=== PATIENT | female | born 1985 | race Caucasian/White ===

== ENCOUNTER 2017-06-23 17:02 | Inpatient (IN) | payer BC, OTHER ==
[2017-06-23] MEDS ORDERED: Lidocaine 1% (PF) 30 ML VIAL SC PRN ×2 (17:30→19:34)
[2017-06-23] MEDS ORDERED: LR / Pitocin 40 units/1000 ml 1,000 ML IV PRN (17:30)
[2017-06-23] MEDS ORDERED: Promethazine HCl 25 MG/ML VIAL IM PRN (17:30)
[2017-06-23] MEDS ORDERED: Ondansetron HCl/PF 4 MG/2 ML Vial IVP PRN (17:30)
[2017-06-23 18:26] LABS: Hematocrit 35.1 % (36.0-47.0); Mean Platelet Volume 9.5 fL (7.4-10.4); Red Blood Cell (RBC) Count 3.78 mill/uL (4.20-5.40); White Blood Cell (WBC) Count 14.2 thou/uL (4.8-10.8)
[2017-06-23 18:33] VITALS: BMI 27.9
[2017-06-23 18:51] LABS: ALT (SGPT) 34 U/L (8-55); AST (SGOT) 25 U/L (5-34); Alkaline Phosphatase 153 U/L (40-150); Anion Gap 11 mmol/L (10-20); BUN (Urea Nitrogen) 10 mg/dL (7.0-18.7); Bilirubin, Total 0.3 mg/dL (0.2-1.2); Calc. Creatinine Clearance 156 mL/min (70-130); Calcium 9.2 mg/dL (7.8-10.44); Carbon Dioxide 22 mmol/L (22-29); Chloride 108 mmol/L (98-107); Estimated GFR-MDRD Greater than 90; Globulin 2.9 g/dL (2.4-3.5); Protein, Total 6.4 g/dL (6.0-8.3)
[2017-06-23] MEDS ORDERED: Ibuprofen 800 MG TAB PO PRN (19:34)
[2017-06-23] MEDS ORDERED: HYDROcodone/Acetaminophen 5/325 mg Tablet PO PRN ×2 (19:34)
[2017-06-23] MEDS ORDERED: Lactated Ringer's 1,000 ML IV SCH (19:45)
[2017-06-23] MEDS: Lactated Ringer's 1,000 ML IV SCH (20:19)
[2017-06-23] MEDS: Misoprostol 100 MCG TAB VAG SCH (20:19)
[2017-06-24] MEDS: Misoprostol 100 MCG TAB VAG SCH ×6 (02:51→16:54)
[2017-06-24] MEDS: Lactated Ringer's 1,000 ML IV SCH ×3 (04:06→22:50)
[2017-06-24] MEDS ORDERED: LR 500 ML/Oxytocin 10 units 500 ML ONE (08:09)
[2017-06-24] MEDS ORDERED: Penicillin G Potassium 5 MILL.UNITS VIAL ONE (08:22)
--- NOTE | 2017-06-24 08:23 | PDOC.LDHP ---
Labor and Delivery H&P Chief complaint: scheduled induction HPI: 31 y/o WF at 37 6/7 weeks EDC 07/08/17 was noted to have elevated blood pressures at her OBV-120-160/90-100. UP was negative. Asymptomatic. Serial blood pressures in L&D 140-150/80-90's c/w mild gestational HTN. Normal labs..Active fetus. Denies headache, scotomata, or right upper quadrant pain. Current gestational age (weeks): 38 Due date: 07/08/17 Dating criteria: last menstrual period Grav: 1 Para: 0 Current complications: hypertension Abnormal US findings: No Allergies/Adverse Reactions: Allergies Allergy/AdvReac Type Severity Reaction Status Date / Time No Allergy Information Allergy Verified 06/23/17 20:04 Available Social history: none - Physical Exam General: NAD Heart: RRR Lungs: CTAB Abdomen: gravid Extremeties: trace edema FHT: category 1 - Vaginal Exam cm dilated: 1 Effacement: 75% Station: -1 - OB Labs Blood type: O RH: positive Antibody Screen: negative HIV: negative RPR: negative HEPSAg: negative 1 hour GCT: negative GBS: unknown - Assessment L&D Assessment: medically indicated induction - Plan Plan: admit to L&D, cervical ripening, labor augmentation if indicated, GBS antibiotic prophylaxis, informed consent obtained, anesthesia consult for pain management
[2017-06-24] MEDS ORDERED: Lidocaine 1% (PF) 30 ML VIAL SC PRN (08:28)
[2017-06-24] MEDS ORDERED: LR / Pitocin 40 units/1000 ml 1,000 ML IV PRN (08:28)
[2017-06-24] MEDS ORDERED: LR 500 ML/Oxytocin 10 units 500 ML IV SCH (08:30)
[2017-06-24] MEDS ORDERED: Penicillin G Potassium 5 MILL.UNITS in Sodium Chloride 0.9% 100 ML IVPB SCH (08:30)
[2017-06-24] MEDS ORDERED: Labetalol HCl 100 MG/20 ML VIAL SLOW IVP PRN (08:31)
[2017-06-24] MEDS ORDERED: FLU VACC QS2017-18 36 mo. & older 0.5 ML SYRINGE IM ONE (09:00)
[2017-06-24] MEDS ORDERED: Fentanyl 4 mcg/Marc 0.1% Cadd 100 ML ONE (09:43)
[2017-06-24] MEDS ORDERED: diphenhydrAMINE 50 MG/ML VIAL IVP PRN ×2 (10:45→17:37)
[2017-06-24] MEDS ORDERED: Promethazine HCl 25 MG/ML VIAL IM PRN ×2 (10:45→17:37)
[2017-06-24] MEDS ORDERED: ePHEDrine/0.9% NaCl/PF SYRINGE 50 mg/10 ml SLOW IVP PRN (10:45)
[2017-06-24] MEDS ORDERED: Acetaminophen 325 MG TAB PO PRN (10:45)
[2017-06-24] MEDS ORDERED: Eucerin (Mineral Oil/Petrolatum,White) 30 gm Jar TOP PRN ×2 (10:45→17:37)
[2017-06-24] MEDS ORDERED: Fentanyl 4mcg/Marcaine 0.1% Cassette 100 ML EPIDURAL SCH (10:45)
[2017-06-24] MEDS ORDERED: Naloxone HCl 0.4 mg/ml Vial IVP PRN ×4 (10:45→17:37)
[2017-06-24] MEDS ORDERED: Lactated Ringer's 500 ML IV PRN (10:45)
[2017-06-24] MEDS ORDERED: Communication Order-Pharmacy FS SCH ×2 (10:45→17:45)
[2017-06-24] MEDS ORDERED: Ondansetron HCl/PF 4 MG/2 ML Vial IVP PRN ×3 (10:45→17:37)
[2017-06-24] MEDS ORDERED: Penicillin G 2.5 MILL.units 2.5 MILL.UNITS in Premix Bag 1 BAG IVPB SCH (13:00)
[2017-06-24] MEDS ORDERED: Bicitra 30 ML UDCUP ONE (14:22)
[2017-06-24] MEDS ORDERED: CEFAZOLIN/Water 2 GM/20 ML SYRINGE ONE (14:22)
[2017-06-24] MEDS ORDERED: Morphine PF 1 MG/ML SYR ONE (14:43)
[2017-06-24] MEDS ORDERED: Ondansetron HCl/PF 4 MG/2 ML Vial ONE (14:43)
[2017-06-24] MEDS ORDERED: Oxytocin 10 UNITS/ML VIAL ONE (14:43)
--- NOTE | 2017-06-24 15:26 | PDOC.EVN ---
Event Note - Event Note Event Note: 06/24/17 @ 1513: CS Balancing Machine Set Up Worker postop note: Called to assist with a primary CS for intolerability of labor (decels). I assisted with a primary LTCS under ni under MATHEUS. No complications. Barbara see full note by Dr Valenzuela. Apgars were 9/9.
[2017-06-24 15:27] LABS: CO2 Tension (PaCO2) 51.2 mmHg (44.0-56.0)
[2017-06-24] MEDS ORDERED: Bisacodyl 10 MG SUPP PR PRN (15:39)
[2017-06-24] MEDS ORDERED: Adacel (T-DAP) 0.5 ML VIAL IM ONE (15:39)
[2017-06-24] MEDS ORDERED: Simethicone Chewable 80 MG TAB PO PRN (15:39)
[2017-06-24] MEDS ORDERED: Lanolin Ointment 7 GM TUBE TOP PRN (15:39)
[2017-06-24] MEDS ORDERED: diphenhydrAMINE 25 MG CAP PO PRN (15:39)
--- NOTE | 2017-06-24 15:44 | PDOC.OPDEL ---
OB Operative/Delivery Note Delivery Dr/Surgeon: Nicolas Assist: Schneider Pre-Delivery Diagnosis: medically indicated induction Procedure/Post Delivery Dx: primary low transverse CS Weeks gestation: 38 Anesthesia: epidural - Findings A Sex: female - 1 min: 9 - 5 min: 9 - Additional Findings/Plan Placenta delivered: manual removal findings: low transverse hysterotomy without extension Estimated blood loss: 600ml Post delivery plan: routine recovery
[2017-06-24] MEDS ORDERED: Misoprostol 200 MCG TAB PR SCH (15:45)
[2017-06-24] MEDS ORDERED: LR w/ Pitocin 40 units/1000 ML BAG IV SCH (15:45)
--- NOTE | 2017-06-24 16:38 | OP ---
DATE OF SERVICE: 06/24/2017 PREOPERATIVE DIAGNOSES: 1. A 31-year-old white female G1, P0 at 38 weeks with gestational hypertension. 2. Status post medically indicated induction with noted nonreassuring heart rate tracing remot e from delivery. POSTOPERATIVE DIAGNOSES: 1. A 31-year-old white female G1, P0 at 38 weeks with gestational hypertension. 2. Status post medically indicated induction with noted nonreassuring heart rate tracing remot e from delivery. PROCEDURE PERFORMED: Primary low transverse section without extension. SURGEON: Livia Valenzuela M.D. GOODWILL AMBASSADOR: Praful Schneider M.D. ANESTHESIA: Epidural. ESTIMATED BLOOD LOSS: 600 mL COMPLICATIONS: None. COUNTS: Correct x2. ANTIBIOTICS: Two grams Ancef loss prevention coordinator to the OR. FINDINGS: 1. Vigorous female infant, vertex presentation, Apgars 9 and 9, weight pending at this time of dictation. 2. Normal appearing fallopian tubes and ovaries and uterus. 3. Clear urine present in Lee catheter post procedure. DISPOSITION: To the recovery room stable. DESCRIPTION OF OPERATIVE PROCEDURE: The patient previously received an informed consent in regards t o the indication for the section. She was taken back to the operating room where she receiv ed an adequate dosing of her epidural to allow for operative delivery. A Pfannenstiel incision was m jailene after the patient had been prepped and draped in usual sterile fashion. The incision was carried to the fascia and the fascia was nicked in midline. Fascial incision was extended bilaterally with the use of curved Becker scissors. The fascia was dissected superiorly and inferiorly off the rectus m uscle bellies. The rectus muscle bellies were divided in the midline. The peritoneal cavity was ent ered. An Santiago O retractor was placed. A 2 cm hysterotomy incision was made in the lower uterine s egment and this was extended via finger fractionation. The baby was delivered in the vertex presenta tion. The mouth and nares were bulb suctioned on the abdomen. The cord was doubly clamped and cut a nd handed to the chummer, Dr. Sauceda who was in attendance. Usual cord blood and cord gas was obtained. Placenta was manually extracted. The placenta was somewhat of a smaller size for the gest ational age noted, most consistent with the induced hypertension. No abruption was noted. The uterus was then curetted of any remaining placental fragments with a dry laparotomy sponge. The hysterotomy incision was closed in running locking fashion with #1 Monocryl suture. Hemostasis was assured. The pelvis was irrigated and suctioned. Hemostasis along the hysterotomy line was again co nfirmed and the Santiago O retractor was then removed. The pelvis again was inspected and hemostasis c onfirmed. The rectus muscle bellies were noted to be hemostatic prior to fascial closure. The fasci a was closed with 0 PDS suture x2 in running continuous fashion and subcutaneous tissue was noted to be hemostatic prior to skin closure with agustín. The surgery was terminated and no anesthetic or wiggins rgical complications.
[2017-06-24] MEDS ORDERED: HYDROmorphone 2 MG/ML VIAL SLOW IVP PRN (17:36)
[2017-06-24] MEDS ORDERED: Naloxone HCl 0.4 mg/ml Vial IV PRN (17:37)
[2017-06-24] MEDS ORDERED: Promethazine HCl 25 MG SUPP PR PRN (17:37)
[2017-06-24] MEDS ORDERED: Ketorolac Tromethamine 30 MG/ML VIAL IVP SCH (17:45)
[2017-06-24] MEDS ORDERED: Morphine 10 MG/ML VIAL ONE (17:48)
[2017-06-24] MEDS: Ferrous Sulfate 325 MG TAB PO SCH (19:26)
[2017-06-24] MEDS: Ibuprofen 800 MG TAB PO SCH (19:26)
[2017-06-24] MEDS: Docusate (Surfak) 240 MG CAP PO SCH (19:26)
[2017-06-24] MEDS: Ketorolac Tromethamine 30 MG/ML VIAL IVP PRN (19:55)
[2017-06-24] MEDS ORDERED: Bupivacaine 0.25% HCL 30 ML VIAL ONE (20:21)
[2017-06-24] MEDS ORDERED: Lidocaine 2% PF 5 ML VIAL ONE (20:21)
[2017-06-25] MEDS: Lactated Ringer's 1,000 ML IV SCH ×3 (02:05→20:09)
[2017-06-25] MEDS: Ibuprofen 800 MG TAB PO SCH ×3 (02:47→21:50)
[2017-06-25 05:07] LABS: Hematocrit 30.3 % (36.0-47.0); Mean Platelet Volume 9.4 fL (7.4-10.4); Red Blood Cell (RBC) Count 3.21 mill/uL (4.20-5.40); White Blood Cell (WBC) Count 12.3 thou/uL (4.8-10.8)
--- NOTE | 2017-06-25 06:39 | PDOC.PP ---
Post Progress Note Post Day #: 1 Subjective: Doing well. Nelly po. No abdominal pain. PO intake tolerated: yes Flatus: yes Ambulation: yes Vital Signs (12 hours) Temp Pulse Resp BP BP Pulse Ox 06/25/17 04:28 98.9 F 59 L 18 125/88 97 06/25/17 02:05 97.8 F 56 L 18 154/88 H 99 06/24/17 20:17 139/85 06/24/17 19:57 97.8 F 64 18 165/91 H 165/91 H 97 Weight Weight 184 lb - Physical Examination Cardiovascular: no m/r/g Respiratory: clear to auscultation bilaterally Abdominal: + bowel sounds, no distention, appropriately TTP Extremities: negative homans (B) Skin: CS incision dry & intact (Jose Juan present...intact) Neurological: no gross focal deficits Psychiatric: A&Ox3 Result Diagrams: 06/25/17 04:38 06/23/17 18:14 Additional Labs: Post Labs Blood Type O POSITIVE 06/23/17 18:07 Hep Bs Antigen Non-Reactive S/CO (NonReactive) 06/23/17 18:14 (1) Delivered by section Code(s): O82 - ENCOUNTER FOR DELIVERY WITHOUT INDICATION Status: Acute - Assessment/Plan 1. Postop day 1- doing well 2. Advance diet 3. Ambulate. 4. Hematocrit evaluated and HCT 30 from 35. 5. PIH- Patient received one dose IV labetolol given 06/24/17.
--- NOTE | 2017-06-25 06:45 | PDOC.PP ---
Post Progress Note Post Day #: 1 Subjective: Doing well. Nelly po Ambulating. . PO intake tolerated: yes Flatus: yes Ambulation: yes Vital Signs (12 hours) Temp Pulse Resp BP BP Pulse Ox 06/25/17 04:28 98.9 F 59 L 18 125/88 97 06/25/17 02:05 97.8 F 56 L 18 154/88 H 99 06/24/17 20:17 139/85 06/24/17 19:57 97.8 F 64 18 165/91 H 165/91 H 97 Weight Weight 184 lb - Physical Examination General: NAD Cardiovascular: RRR Respiratory: clear to auscultation bilaterally Abdominal: + bowel sounds, no distention, appropriately TTP Skin: CS incision dry & intact (agustín in place- low transverse) Neurological: no gross focal deficits Psychiatric: A&Ox3 Result Diagrams: 06/25/17 04:38 06/23/17 18:14 Additional Labs: Post Labs Blood Type O POSITIVE 06/23/17 18:07 Hep Bs Antigen Non-Reactive S/CO (NonReactive) 06/23/17 18:14 (1) Delivered by section Code(s): O82 - ENCOUNTER FOR DELIVERY WITHOUT INDICATION Status: Acute (2) Delivered by section Code(s): O82 - ENCOUNTER FOR DELIVERY WITHOUT INDICATION Status: Acute (3) PIH ( induced hypertension) Code(s): O13.9 - GESTATIONAL HTN W/O SIGNIFICANT PROTEINURIA, UNSP TRIMESTER Status: Acute Qualifiers: Trimester: third trimester Qualified Code(s): O13.3 - Gestational [ -induced] hypertension without significant proteinuria, third trimester - Assessment/Plan 1. POSTOP- pain well controlled. Hct at 30. 2. PIH- recieved one time dose labetolol yesterday afternoon for BP>160, but BPs now stable and wnl. Follow for now. 3. Wound- incision C/D/I, agustín. 4. Follow BPs, continue postop care.
[2017-06-25] MEDS: Prenatal Vitamin 1 TAB PO SCH (08:52)
[2017-06-25] MEDS: Docusate (Surfak) 240 MG CAP PO SCH ×2 (08:52→21:50)
[2017-06-25] MEDS: Ferrous Sulfate 325 MG TAB PO SCH ×2 (08:53→21:51)
[2017-06-25] MEDS: Ketorolac Tromethamine 30 MG/ML VIAL IVP PRN (08:55)
[2017-06-25] MEDS ORDERED: HYDROcodone/Acetaminophen 5/325 mg Tablet PO PRN (15:39)
[2017-06-25] MEDS ORDERED: Zolpidem Tartrate 5 MG TAB PO PRN (15:45)
[2017-06-26] MEDS: Lactated Ringer's 1,000 ML IV SCH ×2 (00:41→11:57)
[2017-06-26] MEDS: Ibuprofen 800 MG TAB PO SCH ×2 (06:21→13:33)
[2017-06-26 07:52] VITALS: BP 137/91; TEMP 98.8
--- NOTE | 2017-06-26 07:54 | PDOC.PP ---
Post Progress Note Post Day #: 2 Subjective: Doing well without complaints this morning. Using only Motrin for pain with good control. PO intake tolerated: yes Flatus: yes Ambulation: yes Vital Signs (12 hours) Temp Pulse Resp BP 06/26/17 07:52 98.8 F 68 20 137/91 H 06/26/17 04:17 98.1 F 63 20 152/88 H 06/25/17 20:15 98.7 F 68 18 133/78 Weight Weight 184 lb - Physical Examination General: NAD Respiratory: non-labored breathing Abdominal: lochia (normal), no distention, appropriately TTP Fundus firm & at: U-4 Skin: CS incision dry & intact, no rash Neurological: no gross focal deficits Psychiatric: A&Ox3, normal affect Result Diagrams: 06/25/17 04:38 06/23/17 18:14 Additional Labs: Post Labs Blood Type O POSITIVE 06/23/17 18:07 Hep Bs Antigen Non-Reactive S/CO (NonReactive) 06/23/17 18:14 (1) Delivered by section Code(s): O82 - ENCOUNTER FOR DELIVERY WITHOUT INDICATION Status: Acute (2) PIH ( induced hypertension) Code(s): O13.9 - GESTATIONAL HTN W/O SIGNIFICANT PROTEINURIA, UNSP TRIMESTER Status: Acute Qualifiers: Trimester: third trimester Qualified Code(s): O13.3 - Gestational [ -induced] hypertension without significant proteinuria, third trimester - Assessment/Plan Baby possibly needing bili lights but wants to go home today if baby is discharged. Will continue routine postop care with possible d/c this pm.
[2017-06-26] MEDS: Docusate (Surfak) 240 MG CAP PO SCH (08:49)
[2017-06-26] MEDS: Prenatal Vitamin 1 TAB PO SCH (08:49)
[2017-06-26] MEDS: Ferrous Sulfate 325 MG TAB PO SCH (08:50)
== END 2017-06-26 15:10 | disposition home or self-care (01) | DRG 766 ==
LOC: L&D/OP 17:02 → L&D 21:01 → 3SW 06-24 18:05
PROVIDERS: ADMIT Obstetrics & Gynecology; ATTEND Obstetrics & Gynecology
PROC: 10D00Z1 Extraction of Products of Conception, Low, Open Approach (ICD-10-PCS; principal; 2017-06-24)
PROC: 10907ZC Drainage of Amniotic Fluid, Therapeutic from Products of Conception, Via Natural or Artificial Opening (ICD-10-PCS; 2017-06-24)
PROC: 3E0P7VZ Introduction of Hormone into Female Reproductive, Via Natural or Artificial Opening (ICD-10-PCS; 2017-06-24)
PROC: 3E0P3VZ Introduction of Hormone into Female Reproductive, Percutaneous Approach (ICD-10-PCS; 2017-06-24)
DX: O76 Abnormality in fetal heart rate and rhythm complicating labor and delivery (principal); Z37.0 Single live birth; O13.4 Gestational [pregnancy-induced] hypertension without significant proteinuria, complicating childbirth; Z3A.38 38 weeks gestation of pregnancy
CPT/HCPCS: 36415; 80053; 82805; 85027; 86780; 86850; 86900; 86901; 87340; 90715; J1885; J2001; J2270; J2274; J2405; J2540; J2590; J7120; S0020

== ENCOUNTER 2019-08-29 10:14 | Inpatient (IN) | payer BC, OTHER ==
[2019-08-29 10:54] VITALS: BMI 33.1
[2019-08-29] MEDS ORDERED: hydrALAZINE 20 MG/ML VIAL SLOW IVP PRN ×3 (11:01→16:59)
[2019-08-29 11:38] LABS: #Eosinphils 0.2 thou/uL (0.0-0.7); #Lymphocytes 2.1 thou/uL (1.20-3.40); #Monocytes 0.9 thou/uL (0.11-0.59); #Neutrophils 8.2 thou/uL (1.40-6.50); %Basophils 0.2 % (0.0-1.0); %Eosinophils 1.4 % (0.0-10.0); %Lymphocytes 18.4 % (21.0-51.0); %Monocytes 7.6 % (0.0-10.0); %Neutrophils 72.4 % (42.0-75.0); Hemoglobin 11.5 g/dL (12.0-16.0); Mean Corpuscular HGB CONC 34.3 g/dL (32.0-36.0); Mean Corpuscular Hemoglobin 30.7 pg (27.0-31.0); Mean Corpuscular Volume 89.6 fL (78.0-98.0); Mean Platelet Volume 9.6 fL (7.4-10.4); Platelet Count 132 thou/uL (130-400); RBC Distribution Width 14.2 % (11.5-14.5); Red Blood Cell (RBC) Count 3.73 mill/uL (4.20-5.40); White Blood Cell (WBC) Count 11.3 thou/uL (4.8-10.8)
[2019-08-29 12:05] LABS: ALT (SGPT) 15 U/L (8-55); AST (SGOT) 18 U/L (5-34); Albumin 3.4 g/dL (3.5-5.0); Alkaline Phosphatase 209 U/L (40-110); Anion Gap 11 mmol/L (10-20); BUN (Urea Nitrogen) 8 mg/dL (7.0-18.7); Bilirubin, Total 0.4 mg/dL (0.2-1.2); Calc. Creatinine Clearance 199 mL/min (70-130); Calcium 8.4 mg/dL (7.8-10.44); Carbon Dioxide 21 mmol/L (22-29); Chloride 109 mmol/L (98-107); Estimated GFR-MDRD Greater than 90; Globulin 2.7 g/dL (2.4-3.5); Glucose 74 mg/dL (70-105); Potassium 3.9 mmol/L (3.5-5.1); Protein, Total 6.1 g/dL (6.0-8.3); Sodium 137 mmol/L (136-145); Uric Acid 5.5 mg/dL (2.6-6.0)
[2019-08-29] MEDS: Lactated Ringer's 1,000 ML IV SCH ×2 (12:55→15:15)
[2019-08-29] MEDS ORDERED: Promethazine HCl 25 MG/ML VIAL IM PRN ×3 (13:01→21:57)
[2019-08-29] MEDS ORDERED: Ondansetron PF 4 MG/2 ML Vial IVP PRN ×3 (13:01→21:57)
[2019-08-29] MEDS ORDERED: CEFAZOLIN 2 GM in Premix Bag 1 BAG IVPB SCH (13:15)
[2019-08-29] MEDS ORDERED: Lactated Ringer's 1,000 ML IV SCH (13:15)
[2019-08-29] MEDS ORDERED: Bicitra 30 ML UDCUP PO SCH (13:15)
[2019-08-29 13:58] LABS: HBSAg Index 0.22 S/CO (0-0.99); Hep B Surf Ag Non-Reactive S/CO (NonReactive)
[2019-08-29 13:58] LABS: Syphilis Antibody Nonreactive (Nonreactive); Syphilis Antibody Index 0.02 S/CO (<1.00 Non-Reactive)
[2019-08-29] MEDS ORDERED: MORPHINE 5 MG/10 ML PF VIAL ONE (15:56)
[2019-08-29] MEDS ORDERED: Fentanyl 100 MCG/2 ML VIAL ONE (15:56)
[2019-08-29] MEDS ORDERED: ePHEDrine/0.9% NaCl/PF SYRINGE 50 mg/10 ml ONE (15:57)
[2019-08-29] MEDS ORDERED: Ketorolac Tromethamine 30 MG/ML VIAL ONE (15:57)
[2019-08-29] MEDS ORDERED: Oxytocin 10 UNITS/ML VIAL ONE (15:57)
[2019-08-29] MEDS ORDERED: Ondansetron PF 4 MG/2 ML Vial ONE (15:57)
[2019-08-29] MEDS ORDERED: Ondansetron HCl/PF 4 MG/2 ML Vial IVP PRN (16:22)
[2019-08-29] MEDS ORDERED: Naloxone HCl 0.4 mg/ml Vial IV PRN ×2 (16:22→21:56)
[2019-08-29] MEDS ORDERED: Meperidine HCl/PF 25 MG/ML VIAL SLOW IVP PRN (16:22)
[2019-08-29] MEDS ORDERED: L&D-Morphine 4 MG/ML VIAL SLOW IVP PRN (16:22)
[2019-08-29] MEDS ORDERED: diphenhydrAMINE 50 MG/ML VIAL IVP PRN ×2 (16:22→21:56)
[2019-08-29] MEDS ORDERED: HYDROmorphone 2 MG/ML VIAL SLOW IVP PRN (16:22)
[2019-08-29] MEDS ORDERED: Ketorolac Tromethamine 30 MG/ML VIAL IVP PRN (16:22)
[2019-08-29] MEDS ORDERED: Promethazine HCl 25 MG SUPP PR PRN ×2 (16:22→21:57)
[2019-08-29] MEDS ORDERED: Naloxone HCl 0.4 mg/ml Vial IVP PRN ×4 (16:22→21:56)
[2019-08-29] MEDS ORDERED: Ketorolac Tromethamine 30 MG/ML VIAL IVP SCH (16:30)
[2019-08-29] MEDS ORDERED: Communication Order-Pharmacy FS SCH ×2 (16:30→22:00)
[2019-08-29] MEDS ORDERED: Misoprostol 200 MCG TAB PR PRN (16:59)
[2019-08-29] MEDS ORDERED: Bisacodyl 10 MG SUPP PR PRN (16:59)
--- NOTE | 2019-08-29 17:03 | PDOC.OPDEL ---
OB Operative/Delivery Note Delivery Dr/Surgeon: Nicolas Assist: Anastacio Pre-Delivery Diagnosis: scheduled section Procedure/Post Delivery Dx: repeat low transverse CS Weeks gestation: 37 Anesthesia: spinal - Findings A Sex: male Weight: 5 lb 11 oz - 1 min: 8 - 5 min: 9 B Sex: male Weight: 5 lb 6 oz - 1 min: 8 - 5 min: 9 - Additional Findings/Plan Placenta delivered: manual removal Estimated blood loss: 300ml Post delivery plan: routine recovery (Repeat c/s at 36 5/7 wees. Di/Di twins. Mild PIH.)
[2019-08-29] MEDS ORDERED: NS / Oxytocin 40 units/1000ml 1,000 ML ONE (17:17)
--- NOTE | 2019-08-29 18:31 | OP ---
DATE OF PROCEDURE: 08/29/2019 PREOPERATIVE DIAGNOSES: 1. A 33-year-old white female, G2, P1, at 36 weeks and 5 days with dichorionic-diamniotic twin gestation. 2. Prior section. 3. Mild -induced hypertension. POSTOPERATIVE DIAGNOSES: 1. A 33-year-old white female, G2, P1, at 36 weeks and 5 days with dichorionic-diamniotic twin gestation. 2. Prior section. 3. Mild -induced hypertension. PROCEDURE PERFORMED: Repeat low transverse section without extension. HOME CARE SPECIALIST SURGEON: Kun Novoa MD ANESTHESIA: Spinal block by Dr. Servando Jane. ESTIMATED BLOOD LOSS: 300 mL. COMPLICATIONS: None. COUNTS: Correct x2. ANTIBIOTIC: 2 g Ancef on-call to OR. FINDINGS: 1. Twin A vigorous male , vertex presentation, clear amniotic fluid, Apgars 8 and 9 with weight 5 pounds 11 ounces. 2. Twin B vigorous male , breech delivery, Apgars 8 and 9, weight 5 pounds 6 ounces. Clear amniotic fluid noted. 3. Normal-appearing fallopian tubes, ovaries, and uterus. DISPOSITION: Recovery room in stable. DESCRIPTION OF OPERATIVE PROCEDURE: The patient previously received informed consent in regard to surgery. She was taken back to the operating room, where she received a spinal block without complications. She was prepped and draped in usual sterile fashion. Lee catheter and PlexiPulses had been placed. A Pfannenstiel incision was made with the previous scar site, carried down the fascia. Fascia was nicked in midline. Fascial incision was extended bilaterally using curved Becker scissors. The rectus muscle bellies were dissected off the rectus fascia, and the rectus muscle bellies were divided in the midline. The peritoneal cavity was entered. The peritoneal incision was extended. Bladder blade was placed. Bladder flap was dissected off the lower uterine segment in an atraumatic fashion. A lower uterine transverse incision was made in the hysterotomy site, and this was extended with Metzenbaum scissors in finger fractionation. The baby A was delivered in vertex presentation after the amniotic bag was ruptured. The mouth and nares were bulb suctioned on the abdomen. The cord was doubly clamped and cut and handed to the shipping and receiving in attendance. Usual cord blood was obtained. Twin B was then noted to be presenting double footling breech. The amniotic bag was ruptured. The 2 feet were brought through the hysterotomy incision. The buttocks were wrapped with a moist laparotomy sponge. In corkscrewing technique, both arms were delivered atraumatically and my scheduling assistant continued to have external flexion on the head allowing easy delivery of the head. The mouth and nares of the were bulb suctioned on the abdomen. Cord was doubly clamped and cut. The baby was handed to the car unloader in attendance. Usual cord blood was obtained. Placentas were manually extracted. The uterus was externalized. Uterus was curetted of any remaining placental fragments with dry laparotomy sponge. The hysterotomy incision was then closed in running locking fashion with #1 Monocryl suture. Good closure was noted, and hemostasis was confirmed. The uterus was returned back into the abdomen. The pelvis again was suctioned and irrigated. Hemostasis on the hysterotomy site again was confirmed. The rectus muscle bellies were noted to be hemostatic prior to the fascial closure. The fascia was closed with 0 PDS suture x2 in running continuous fashion. Subcutaneous tissue was noted to be hemostatic, and the skin was approximated with agustín. The surgery was terminated, and no anesthetic or surgical complications occurred. Job ID: [id number]
[2019-08-29] MEDS ORDERED: diphenhydrAMINE 25 MG CAP PO PRN (22:00)
[2019-08-29] MEDS ORDERED: Lanolin Ointment 7 GM TUBE TOP PRN (22:00)
[2019-08-29] MEDS ORDERED: Acetaminophen 325 MG TAB PO PRN (22:02)
[2019-08-30] MEDS: Ketorolac Tromethamine 30 MG/ML VIAL IVP PRN ×2 (00:35→09:30)
[2019-08-30] MEDS: Docusate Calcium (SURFAK) 240 MG CAP PO SCH ×3 (00:56→19:35)
[2019-08-30] MEDS: Lactated Ringer's 1,000 ML IV SCH (01:55)
[2019-08-30] MEDS ORDERED: HYDROcodone/Acetaminophen 5/325 mg Tablet PO PRN ×2 (04:30)
[2019-08-30 06:13] LABS: Hemoglobin 10.4 g/dL (12.0-16.0); Mean Corpuscular HGB CONC 34.1 g/dL (32.0-36.0); Mean Corpuscular Hemoglobin 30.4 pg (27.0-31.0); Mean Corpuscular Volume 89.3 fL (78.0-98.0); Mean Platelet Volume 9.6 fL (7.4-10.4); Platelet Count 111 thou/uL (130-400); RBC Distribution Width 14.2 % (11.5-14.5); Red Blood Cell (RBC) Count 3.42 mill/uL (4.20-5.40)
--- NOTE | 2019-08-30 07:45 | PDOC.PP ---
Post Progress Note Post Day #: 1 Subjective: DOing well. well. PO intake tolerated: yes Flatus: yes Ambulation: yes Vital Signs (12 hours) Temp Pulse Resp BP Pulse Ox 08/30/19 03:55 97.5 F L 56 L 18 115/76 08/30/19 00:25 98.1 F 58 L 18 141/86 H 97 08/29/19 22:00 98.0 F 60 18 138/78 99 08/29/19 20:48 98.4 F 62 18 137/82 99 Weight Weight 218 lb Result Diagrams: 08/30/19 05:44 08/29/19 11:28 Additional Labs: Post Labs Blood Type O POSITIVE 08/29/19 13:06 Hep Bs Antigen Non-Reactive S/CO (NonReactive) 08/29/19 13:07 - Assessment/Plan Post op day 1 from repeat c/s for twins. DOing well. Routine post op care...
[2019-08-30] MEDS ORDERED: Adacel (T-DAP) 0.5 ML SYRINGE IM ONE (09:00)
[2019-08-30] MEDS: Simethicone Chewable 80 MG TAB PO PRN ×2 (09:11→19:34)
[2019-08-30] MEDS: Ferrous Sulfate 325 MG TAB PO SCH ×2 (09:11→17:58)
[2019-08-30] MEDS: Prenatal Vitamin 1 TAB PO SCH (09:11)
--- NOTE | 2019-08-30 11:36 | OP ---
DATE OF PROCEDURE: 08/29/2019 PRIMARY OB: Livia Valenzuela MD This documentation just serves to document I served as first officer for a repeat on [facility] with primary surgeon, Livia Valenzuela. Please refer to her operative note for complete details. Job ID: [id number]
[2019-08-30] MEDS: Ibuprofen 800 MG TAB PO SCH (19:34)
[2019-08-31] MEDS: Ibuprofen 800 MG TAB PO SCH ×2 (05:58→14:35)
[2019-08-31 07:52] VITALS: BP 128/69; TEMP 97.9
--- NOTE | 2019-08-31 08:13 | PDOC.PP ---
Post Progress Note Post Day #: 2 PO intake tolerated: yes Flatus: yes Ambulation: yes Vital Signs (12 hours) Temp Pulse Resp BP Pulse Ox 08/31/19 07:51 97.9 F 62 16 128/69 98 08/31/19 06:00 98.5 F 68 17 130/69 08/31/19 01:00 98.6 F 72 17 126/75 Weight Weight 218 lb Result Diagrams: 08/30/19 05:44 08/29/19 11:28 Additional Labs: Post Labs Blood Type O POSITIVE 08/29/19 13:06 Hep Bs Antigen Non-Reactive S/CO (NonReactive) 08/29/19 13:07 - Assessment/Plan Doing well post op day 2 from repeat c/s for twins. Plan for d/c later today if continues to do well. Jose Juan out post op day 7 and f/u 6 weeks.
[2019-08-31] MEDS: Ferrous Sulfate 325 MG TAB PO SCH (09:02)
[2019-08-31] MEDS: Prenatal Vitamin 1 TAB PO SCH (09:43)
[2019-08-31] MEDS: Docusate Calcium (SURFAK) 240 MG CAP PO SCH (09:44)
[2019-08-31] MEDS: Simethicone Chewable 80 MG TAB PO PRN (09:44)
== END 2019-08-31 15:00 | disposition home or self-care (01) | DRG 788 ==
LOC: L&D/OP 10:14 → L&D 13:04 → 3SW 08-30 00:38
PROVIDERS: ADMIT Obstetrics & Gynecology; ATTEND Obstetrics & Gynecology
PROC: 10D00Z1 Extraction of Products of Conception, Low, Open Approach (ICD-10-PCS; principal; 2019-08-29)
DX: O34.211 Maternal care for low transverse scar from previous cesarean delivery (principal); Z37.2 Twins, both liveborn; O30.043 Twin pregnancy, dichorionic/diamniotic, third trimester; Z3A.36 36 weeks gestation of pregnancy; O13.4 Gestational [pregnancy-induced] hypertension without significant proteinuria, complicating childbirth
CPT/HCPCS: 36415; 51702; 80053; 82570; 84156; 84550; 85025; 85027; 86780; 86850; 86900; 86901; 87340; 99285; J0690; J1200; J1885; J2274; J2405; J2550; J2590; J3010